=== PATIENT | male | born 1960 | race African-American/Black ===

== ENCOUNTER 2021-12-09 17:21 | Emergency (ER) | payer SELFPAY ==
[2021-12-09] MEDS ORDERED: Boostrix 0.5 ML (Tdap) VIAL ONE (19:58)
[2021-12-09] MEDS ORDERED: Lidocaine 1% (PF) 30 ML VIAL ONE (19:58)
[2021-12-09] MEDS ORDERED: Lidocaine 1% w/Epinephrine 1:100K 20 ML VIAL ONE (19:59)
[2021-12-09] MEDS ORDERED: Doxycycline 100 MG CAP ONE (20:38)
[2021-12-09] MEDS ORDERED: Cephalexin 500 MG CAP ONE (20:38)
== END 2021-12-09 21:00 | disposition home or self-care (01) ==
LOC: MADERS 17:21
DX: L02.212 Cutaneous abscess of back [any part, except buttock and flank] (principal); I10 Essential (primary) hypertension; M10.9 Gout, unspecified; Z79.899 Other long term (current) drug therapy
CPT/HCPCS: 10061; 87070; 87077; 87186; 87205; 90471; 90715; J2001

== ENCOUNTER 2022-09-27 10:30 | Outpatient (CLI) | payer SELFPAY | END 2022-09-27 10:31 | disposition home or self-care (01) | LOC: MADEKG 10:30 | PROVIDERS: ATTEND Internal Medicine | DX: R01.1 Cardiac murmur, unspecified (principal) | CPT/HCPCS: 93005; 93010 ==